=== PATIENT | male | born 1970 | race Caucasian/White ===

== ENCOUNTER 2017-02-22 22:07 | Observation (INO) | payer OTHER ==
[2017-02-22] MEDS ORDERED: Ondansetron 4 MG/2 ML SDV IVPUSH ONE (23:33)
[2017-02-22] MEDS ORDERED: HYDROmorphone 1 MG/ML Syringe IVPUSH ONE (23:33)
[2017-02-22] MEDS ORDERED: Sodium Chloride 0.9% 1,000 ML IV SCH (23:45)
[2017-02-23] MEDS ORDERED: Diatrizoate Meglumine/Diatrizoate Sodium 37% 120 ML Bottle PO ONE (01:01)
[2017-02-23] MEDS ORDERED: Sodium Chloride 0.9% 10 ML Syringe FLUSH PRN (01:01)
[2017-02-23] MEDS ORDERED: Iopamidol 755 Mg/ML 100 ML Bottle IVPUSH ONE (01:01)
[2017-02-23] MEDS ORDERED: Sodium Chloride 0.9% 100 ML IV SCH (01:15)
[2017-02-23] MEDS ORDERED: HYDROmorphone 1 MG/ML Syringe IVPUSH ONE (01:34)
--- NOTE | 2017-02-23 01:46 | EDM.PDOC ---
ED HPI GENERAL MEDICAL PROBLEM - General Chief Complaint: Abdominal Pain Stated Complaint: ABDOMINAL PAIN Time Seen by Provider: 02/22/17 23:22 Source of Information: Reports: Patient, RN Notes Reviewed History Limitations: Reports: No Limitations - History of Present Illness INITIAL COMMENTS - FREE TEXT/NARRATIVE: The patient states that he developed central abdominal pain around 11:00 this morning, but that the pain then radiated to his right lower quadrant. He states that it is a painful bloating sensation. The pain is made worse with walking. He is most comfortable in the position. He developed nonbloody diarrhea around noon, then nausea and vomiting around 18:00 tonight. No recent fever. He states that the sensation is similar to when he had diverticulitis in 2004, but he does not recall the location of the pain at that time. The patient has never had a colonoscopy. The patient's last oral solid food was around noon today, his last liquid oral intake was around 18:00 tonight, but he vomited it up. The patient's PCP is Dr. Asencio, from [place], [place]. The patient is in this area for work. Left Lower Abdomen Pain Score (Numeric/FACES): 8 - Related Data Allergies Allergy/AdvReac Type Severity Reaction Status Date / Time cephalexin [From Keflex] Allergy Vomiting Verified 02/22/17 22:33 Home Meds: Home Meds Omeprazole Magnesium [Prilosec Otc] 20 mg PO DAILY 02/22/17 [History] Past Medical History Cardiovascular History: Reports: High Cholesterol Gastrointestinal History: Reports: Diverticulosis, GERD Psychiatric History: Reports: PTSD - Past Surgical History HEENT Surgical History: Reports: BLADIMIRIK Social & Family History - Tobacco Use Smoking Status *Q: Never Smoker - Alcohol Use Alcohol Use History: No - Recreational Drug Use Recreational Drug Use: No - Living Situation & Occupation Living situation: Reports: , with Spouse, with Family (1 daughter) 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) ED ROS GENERAL - Review of Systems Review Of Systems: See Below Constitutional: Reports: No Symptoms HEENT: Reports: No Symptoms Respiratory: Reports: No Symptoms Cardiovascular: Reports: No Symptoms Endocrine: Reports: No Symptoms GI/Abdominal: Reports: No Symptoms : Reports: No Symptoms Musculoskeletal: Reports: No Symptoms Skin: Reports: No Symptoms Neurological: Reports: No Symptoms Psychiatric: Reports: No Symptoms Hematologic/Lymphatic: Reports: No Symptoms Immunologic: Reports: No Symptoms ED EXAM, GI/ABD - Physical Exam Exam: See Below Exam Limited By: No Limitations General Appearance: Alert, WD/WN, Mild Distress (Appears uncomfortable) Ears: Normal External Exam, Hearing Grossly Normal Nose: Normal Inspection, No Blood Throat/Mouth: Normal Inspection, Normal Lips, Normal Voice, No Airway Compromise Head: Atraumatic, Normocephalic Neck: Normal Inspection, Full Range of Motion Respiratory/Chest: No Respiratory Distress, Lungs Clear, Normal Breath Sounds, No Accessory Muscle Use Cardiovascular: Normal Peripheral Pulses, Regular Rate, Rhythm, No Gallop, No JVD, No Murmur, No Rub GI/Abdominal Exam: Normal Bowel Sounds, Soft, No Organomegaly, No Distention, No Abnormal Bruit, No Mass, Tender (To the right lower quadrant only. Nontender elsewhere.), Other (Rovsing sign present. Heel drop sign present. Obturator sign negative. Psoas sign negative.) (Male) Exam: Deferred Back Exam: Normal Inspection, Full Range of Motion. No: CVA Tenderness (L), CVA Tenderness (R) Extremities: Normal Inspection, Normal Range of Motion, No Pedal Edema, Normal Capillary Refill Neurological: Alert, Oriented, Normal Cognition, No Motor/Sensory Deficits Psychiatric: Normal Affect Skin Exam: Warm, Dry, Intact, Normal Color, No Rash Lymphatic: No Adenopathy Course - Vital Signs Last Recorded V/S: Last Vital Signs Temp 36.9 C 02/22/17 22:33 Pulse 56 L 02/22/17 22:33 Resp 18 02/22/17 22:33 BP 137/84 02/22/17 22:33 Pulse Ox 100 02/22/17 22:33 - Orders/Labs/Meds Orders: Active Orders 24 hr Category Date Time Status Abdomen Pelvis w Cont [CT] Stat Exams 02/22/17 23:32 Taken UA W/MICROSCOPIC [URIN] Stat Lab 02/22/17 22:49 Uncollected Sodium Chloride 0.9% [Normal Saline] 1,000 ml Med 02/22/17 23:45 Active IV ASDIRECTED Sodium Chloride 0.9% [Normal Saline] 100 ml Med 02/23/17 01:15 Active IV ASDIRECTED Sodium Chloride 0.9% [Saline Flush] Med 02/23/17 01:01 Active 10 ml FLUSH ONETIME PRN Medication Orders Sodium Chloride (Normal Saline) 1,000 mls @ 150 mls/hr IV ASDIRECTED VÍCTOR Last Admin: 02/22/17 23:43 Dose: 150 mls/hr Sodium Chloride (Normal Saline) 100 mls @ 65 mls/hr IV ASDIRECTED VÍCTOR Last Admin: 02/23/17 01:45 Dose: 65 mls/hr Sodium Chloride (Saline Flush) 10 ml FLUSH ONETIME PRN PRN Reason: IV FLUSH Last Admin: 02/23/17 01:45 Dose: 10 ml Labs: Laboratory Tests 02/22/17 02/22/17 Range/Units 22:58 22:58 WBC 13.20 H (4.23-9.07) K/mm3 RBC 5.00 (4.63-6.08) M/mm3 Hgb 14.9 (13.7-17.5) gm/L Hct 42.9 (40.1-51.0) % MCV 85.8 (79.0-92.2) fl MCH 29.8 (25.7-32.2) pg MCHC 34.7 (32.2-35.5) g/dl RDW Std Deviation 39.6 (35.1-43.9) fL Plt Count 279 (163-337) K/mm3 MPV 9.7 (9.4-12.3) fl Neutrophils % (Manual) 80 H (40-60) % Band Neutrophils % 1 (0-10) % Lymphocytes % (Manual) 9 L (20-40) % Atypical Lymphs % 0 % Monocytes % (Manual) 8 (2-10) % Eosinophils % (Manual) 0 L (0.8-7.0) % Basophils % (Manual) 2 H (0.2-1.2) Platelet Estimate Adequate Plt Morphology Comment Normal RBC Morph Comment Normal Sodium 142 (136-145) mEq/L Potassium 3.9 (3.5-5.1) mEq/L Chloride 106 (98-107) mEq/L Carbon Dioxide 29 (21-32) mEq/L Anion Gap 10.9 (5-15) BUN 20 H (7-18) mg/dL Creatinine 1.5 H (0.7-1.3) mg/dL Est Cr Clr Drug Dosing 66.24 mL/min Estimated GFR (MDRD) 51 (>60) mL/min BUN/Creatinine Ratio 13.3 L (14-18) Glucose 142 H (74-106) mg/dL Calcium 9.0 (8.5-10.1) mg/dL Total Bilirubin 0.9 (0.2-1.0) mg/dL AST 25 (15-37) U/L ALT 34 (16-63) U/L Alkaline Phosphatase 68 (46-116) U/L C-Reactive Protein < 0.2 (<1.0) mg/dL Total Protein 7.5 (6.4-8.2) g/dl Albumin 4.4 (3.4-5.0) g/dl Globulin 3.1 gm/dL Albumin/Globulin Ratio 1.4 (1-2) Lipase 335 (73-393) U/L Meds: Medications Generic Name Dose Route Start Last Admin Trade Name Freq PRN Reason Stop Dose Admin Sodium Chloride 1,000 mls @ 150 mls/hr 02/22/17 23:45 02/22/17 23:43 Normal Saline IV 150 mls/hr ASDIRECTED VÍCTOR Administration Sodium Chloride 100 mls @ 65 mls/hr 02/23/17 01:15 02/23/17 01:45 Normal Saline IV 65 mls/hr ASDIRECTED VÍCTOR Administration Sodium Chloride 10 ml 02/23/17 01:01 02/23/17 01:45 Saline Flush FLUSH 10 ml ONETIME PRN Administration IV FLUSH Discontinued Medications Generic Name Dose Route Start Last Admin Trade Name Maninder PRN Reason Stop Dose Admin Diatrizoate Meglum/Diatrizoate Sod 90 ml 02/23/17 01:01 02/23/17 01:47 Gastrografin 37% PO 02/23/17 01:02 90 ml ONETIME ONE Administration Hydromorphone HCl 1 mg 02/22/17 23:33 02/22/17 23:43 Dilaudid IVPUSH 02/22/17 23:34 1 mg ONETIME ONE Administration Hydromorphone HCl 1 mg 02/23/17 01:34 02/23/17 01:38 Dilaudid IVPUSH 02/23/17 01:35 1 mg ONETIME ONE Administration Iopamidol 100 ml 02/23/17 01:01 02/23/17 01:45 Isovue-370 (76%) IVPUSH 02/23/17 01:02 100 ml ONETIME ONE Administration Ondansetron HCl 4 mg 02/22/17 23:33 02/22/17 23:45 Zofran IVPUSH 02/22/17 23:34 4 mg ONETIME ONE Administration - Re-Assessments/Exams Free Text/Narrative Re-Assessment/Exam: 02/23/17 02:15 CT of the abdomen and pelvis with oral and IV contrast is read by virtual radiology as: Abnormally dilated appendix containing probable appendicoliths with evidence of minimal periappendiceal inflammatory change. Findings are consistent early on, acute appendicitis. Colonic diverticulosis without evidence of diverticulitis. 02/23/17 02:[address] Avalos at 02:15. He would like the patient to receive Mefoxin 2 g. He would like the patient to be admitted to him. I will write bridge orders. Departure - Departure Time of Disposition: 02:22 Disposition: Home, Self-Care 01 Condition: Fair Clinical Impression: Acute appendicitis - Discharge Information - My Orders Last 24 Hours: My Active Orders 02/22/17 22:49 UA W/MICROSCOPIC [URIN] Stat 02/22/17 23:32 Abdomen Pelvis w Cont [CT] Stat 02/22/17 23:45 Sodium Chloride 0.9% [Normal Saline] 1,000 ml IV ASDIRECTED 02/23/17 01:01 Sodium Chloride 0.9% [Saline Flush] 10 ml FLUSH ONETIME PRN 02/23/17 01:15 Sodium Chloride 0.9% [Normal Saline] 100 ml IV ASDIRECTED - Assessment/Plan Last 24 Hours: My Active Orders 02/22/17 22:49 UA W/MICROSCOPIC [URIN] Stat 02/22/17 23:32 Abdomen Pelvis w Cont [CT] Stat 02/22/17 23:45 Sodium Chloride 0.9% [Normal Saline] 1,000 ml IV ASDIRECTED 02/23/17 01:01 Sodium Chloride 0.9% [Saline Flush] 10 ml FLUSH ONETIME PRN 02/23/17 01:15 Sodium Chloride 0.9% [Normal Saline] 100 ml IV ASDIRECTED
[2017-02-23] MEDS ORDERED: cefOXitin 2 GM in Sodium Chloride 0.9% 100 ML IV ONE (02:19)
[2017-02-23] MEDS ORDERED: cefOXitin 2 GM in Premix Bag 1 BAG IV ONE (02:25)
[2017-02-23] MEDS ORDERED: Ondansetron 4 MG/2 ML SDV IVPUSH PRN ×2 (03:34→09:10)
[2017-02-23] MEDS ORDERED: HYDROmorphone 1 MG/ML Syringe IVPUSH PRN (03:34)
[2017-02-23] MEDS ORDERED: Lidocaine 1% with EPINEPHrine 1:100,000 20 ML MDV ONE ×2 (07:55→08:16)
[2017-02-23] MEDS ORDERED: Bupivacaine 0.5%/EPINEPHrine 1:200,000 50 ML MDV ONE ×2 (07:55→08:16)
[2017-02-23] MEDS ORDERED: Bupivacaine 0.5% 30 ML SDV ONE (07:58)
[2017-02-23] MEDS ORDERED: Lidocaine 1% 30 ML SDV ONE (07:58)
--- NOTE | 2017-02-23 08:03 | PCM.HP ---
H&P History of Present Illness - General Date of Service: 02/23/17 Admit Problem/Dx: Admission Diagnosis/Problem Admission Diagnosis/Problem Acute appendicitis Source of Information: Patient - History of Present Illness Initial Comments - Free Text/Narative: 47-year-old male was in his usual state of excellent health until yesterday when he complained of abdominal pain. His pain began in the epigastrium then became periumbilical and ultimately rested in his right lower quadrant. The pain has intensified since onset and because of this he presented to the emergency room. He had anorexia nausea and one loose stool without blood. His white blood cell count was elevated. A CT scan showed features consistent with early appendicitis. I was asked to evaluate him. Left Lower Abdomen Pain Score (Numeric/FACES): 0 - Related Data Allergies/Adverse Reactions: Allergies Allergy/AdvReac Type Severity Reaction Status Date / Time cephalexin [From Keflex] Allergy Vomiting Verified 02/22/17 22:33 Home Medications: Home Meds Omeprazole Magnesium [Prilosec Otc] 20 mg PO DAILY 02/22/17 [History] Past Medical History Cardiovascular History: Reports: High Cholesterol Gastrointestinal History: Reports: Diverticulosis, GERD Other Gastrointestinal History: diverticulitis Neurological History: Reports: Migraines Psychiatric History: Reports: PTSD - Past Surgical History HEENT Surgical History: Reports: KUMAR Cardiovascular Surgical History: Reports: None GI Surgical History: Reports: None Neurological Surgical History: Reports: None Dermatological Surgical History: Reports: None Social & Family History - Family History Cardiac: Reports: Heart Valve Replacement GI: Reports: GERD, Other (See Below) Other GI Family History: barretts esophagus Musculoskeletal: Reports: Back pain, Chronic Oncologic: Reports: Ovarian - Tobacco Use Smoking Status *Q: Never Smoker - Recreational Drug Use Recreational Drug Use: No - Living Situation & Occupation Living situation: Reports: , with Spouse, with Family (1 daughter) 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) H&P Review of Systems - Review of Systems: Review Of Systems: See Below Gastrointestinal: Reports: Abdominal Pain Exam - Exam Exam: See Below - Vital Signs Vital Signs: Last Vital Signs Temp 37.6 C 02/23/17 03:10 Pulse 69 02/23/17 03:10 Resp 16 02/23/17 03:10 BP 131/76 02/23/17 03:10 Pulse Ox 93 L 02/23/17 03:10 Weight: 86.727 kg - Exam General: Alert, Oriented, Cooperative HEENT: Conjunctiva Clear Neck: Supple, Trachea Midline Lungs: Clear to Auscultation, Normal Respiratory Effort Cardiovascular: Regular Rate, Regular Rhythm, Normal S1, Normal S2 GI/Abdominal Exam: Normal Bowel Sounds, Tender (McBurney's point) (Male) Exam: Deferred Rectal (Males) Exam: Deferred Back Exam: Full Range of Motion Skin: Warm, Dry, Intact Neuro Extensive - Mental Status: Alert, Oriented x3 Psychiatric: Alert, Normal Affect - Patient Data Lab Results Last 24 hrs: Laboratory Results - last 24 hr 02/23/17 Range/Units 02:40 Urine Color Yellow (Yellow) Urine Appearance Clear (Clear) Urine pH 6.0 (5.0-8.0) Ur Specific [place] 1.025 (1.005-1.030) Urine Protein Negative (Negative) Urine Glucose (UA) Negative (Negative) Urine Ketones Trace H (Negative) Urine Occult Blood Negative (Negative) Urine Nitrite Negative (Negative) Urine Bilirubin Negative (Negative) Urine Urobilinogen 0.2 (0.2-1.0) Ur Leukocyte Esterase Negative (Negative) Urine RBC 0-5 (0-5) /hpf Urine WBC 0-5 (0-5) /hpf Ur Epithelial Cells Not seen (0-5) /hpf Urine Bacteria Few (FEW) /hpf Urine Mucus Few (FEW) /hpf Result Diagrams: 02/22/17 22:58 02/22/17 22:58 *Q Meaningful Use (ADM) - VTE *Q VTE Criteria *Q: - Stroke *Q Stroke Criteria *Q: - AMI *Q AMI Criteria *Q: - Problem List (1) Acute appendicitis SNOMED Code(s): 76180977 ICD Code: K35.80 - UNSPECIFIED ACUTE APPENDICITIS Status: Acute Current Visit: Yes Problem List Initiated/Reviewed/Updated: Yes Orders Last 24hrs: Active Orders 24 hr Category Date Time Status Admission Status [Patient Status] [ADT] Routine ADT 02/23/17 02:48 Active NPO [Nothing Per Oral Diet] [DIET] Diet 02/23/17 Breakfast Active HYDROmorphone [Dilaudid] Med 02/23/17 03:34 Active 1 mg IVPUSH Q2H PRN Ondansetron [Zofran] Med 02/23/17 03:34 Active 4 mg IVPUSH Q6HR PRN Resuscitation Status Routine Resus Stat 02/23/17 03:32 Ordered Medication Orders Hydromorphone HCl (Dilaudid) 1 mg IVPUSH Q2H PRN PRN Reason: Pain (moderate 4-6) Sodium Chloride (Normal Saline) 1,000 mls @ 150 mls/hr IV ASDIRECTED [facility] Last Admin: 02/22/17 23:43 Dose: 150 mls/hr Ondansetron HCl (Zofran) 4 mg IVPUSH Q6HR PRN PRN Reason: Nausea/Vomiting Sodium Chloride (Saline Flush) 10 ml FLUSH ONETIME PRN PRN Reason: IV FLUSH Last Admin: 02/23/17 01:45 Dose: 10 ml Assessment/Plan Comment:: Imp: Acute appendicitis Plan: Laparoscopic possible open appendectomy. I discussed the benefits risks of the procedure as well as the alternatives. I made him aware of the possibility of bleeding infection and internal injury. He wanted to proceed.
--- NOTE | 2017-02-23 08:09 | PCM.PREANE ---
Preanesthetic Assessment - Anesthesia/Transfusion/Family Hx Anesthesia History: Prior Anesthesia Reaction Family History of Anesthesia Reaction: No Transfusion History: No Prior Transfusion(s) Intubation History: Unknown - Review of Systems General: Fever, Chills, Night Sweats Pulmonary: No Symptoms Cardiovascular: No Symptoms Gastrointestinal: Abdominal Pain, Nausea Neurological: No Symptoms Other: Reports: None - Physical Assessment NPO Status Date: 02/23/17 NPO Status Time: 03:00 Pulse: 69 O2 Sat by Pulse Oximetry: 93 Respiratory Rate: 16 Blood Pressure: 131/76 Temperature: 37.6 C Vital Signs: Last Vital Signs Temp 37.6 C 02/23/17 03:10 Pulse 69 02/23/17 03:10 Resp 16 02/23/17 03:10 BP 131/76 02/23/17 03:10 Pulse Ox 93 L 02/23/17 03:10 Height: 1.8 m Weight: 86.727 kg Mental Status: Alert & Oriented x3 Airway Class: Mallampati = 1 Dentition: Reports: Normal Dentition ((L) front tooth loose) Thyro-Mental Finger Breadths: 3 Mouth Opening Finger Breadths: 3 ROM/Head Extension: Full Lungs: Clear to Auscultation, Normal Respiratory Effort Cardiovascular: Regular Rate, Regular Rhythm - Lab Values: Laboratory Last Values WBC 13.20 K/mm3 (4.23-9.07) H 02/22/17 22:58 RBC 5.00 M/mm3 (4.63-6.08) 02/22/17 22:58 Hgb 14.9 gm/L (13.7-17.5) 02/22/17 22:58 Hct 42.9 % (40.1-51.0) 02/22/17 22:58 MCV 85.8 fl (79.0-92.2) 02/22/17 22:58 MCH 29.8 pg (25.7-32.2) 02/22/17 22:58 MCHC 34.7 g/dl (32.2-35.5) 02/22/17 22:58 RDW Std Deviation 39.6 fL (35.1-43.9) 02/22/17 22:58 Plt Count 279 K/mm3 (163-337) 02/22/17 22:58 MPV 9.7 fl (9.4-12.3) 02/22/17 22:58 Neutrophils % (Manual) 80 % (40-60) H 02/22/17 22:58 Band Neutrophils % 1 % (0-10) 02/22/17 22:58 Lymphocytes % (Manual) 9 % (20-40) L 02/22/17 22:58 Atypical Lymphs % 0 % 02/22/17 22:58 Monocytes % (Manual) 8 % (2-10) 02/22/17 22:58 Eosinophils % (Manual) 0 % (0.8-7.0) L 02/22/17 22:58 Basophils % (Manual) 2 (0.2-1.2) H 02/22/17 22:58 Platelet Estimate Adequate 02/22/17 22:58 Plt Morphology Comment Normal 02/22/17 22:58 RBC Morph Comment Normal 02/22/17 22:58 Sodium 142 mEq/L (136-145) 02/22/17 22:58 Potassium 3.9 mEq/L (3.5-5.1) 02/22/17 22:58 Chloride 106 mEq/L (98-107) 02/22/17 22:58 Carbon Dioxide 29 mEq/L (21-32) 02/22/17 22:58 Anion Gap 10.9 (5-15) 02/22/17 22:58 BUN 20 mg/dL (7-18) H 02/22/17 22:58 Creatinine 1.5 mg/dL (0.7-1.3) H 02/22/17 22:58 Est Cr Clr Drug Dosing 66.24 mL/min 02/22/17 22:58 Estimated GFR (MDRD) 51 mL/min (>60) 02/22/17 22:58 BUN/Creatinine Ratio 13.3 (14-18) L 02/22/17 22:58 Glucose 142 mg/dL (74-106) H 02/22/17 22:58 Calcium 9.0 mg/dL (8.5-10.1) 02/22/17 22:58 Total Bilirubin 0.9 mg/dL (0.2-1.0) 02/22/17 22:58 AST 25 U/L (15-37) 02/22/17 22:58 ALT 34 U/L (16-63) 02/22/17 22:58 Alkaline Phosphatase 68 U/L (46-116) 02/22/17 22:58 C-Reactive Protein < 0.2 mg/dL (<1.0) 02/22/17 22:58 Total Protein 7.5 g/dl (6.4-8.2) 02/22/17 22:58 Albumin 4.4 g/dl (3.4-5.0) 02/22/17 22:58 Globulin 3.1 gm/dL 02/22/17 22:58 Albumin/Globulin Ratio 1.4 (1-2) 02/22/17 22:58 Lipase 335 U/L (73-393) 02/22/17 22:58 Urine Color Yellow (Yellow) 02/23/17 02:40 Urine Appearance Clear (Clear) 02/23/17 02:40 Urine pH 6.0 (5.0-8.0) 02/23/17 02:40 Ur Specific [place] 1.025 (1.005-1.030) 02/23/17 02:40 Urine Protein Negative (Negative) 02/23/17 02:40 Urine Glucose (UA) Negative (Negative) 02/23/17 02:40 Urine Ketones Trace (Negative) H 02/23/17 02:40 Urine Occult Blood Negative (Negative) 02/23/17 02:40 Urine Nitrite Negative (Negative) 02/23/17 02:40 Urine Bilirubin Negative (Negative) 02/23/17 02:40 Urine Urobilinogen 0.2 (0.2-1.0) 02/23/17 02:40 Ur Leukocyte Esterase Negative (Negative) 02/23/17 02:40 Urine RBC 0-5 /hpf (0-5) 02/23/17 02:40 Urine WBC 0-5 /hpf (0-5) 02/23/17 02:40 Ur Epithelial Cells Not seen /hpf (0-5) 02/23/17 02:40 Urine Bacteria Few /hpf (FEW) 02/23/17 02:40 Urine Mucus Few /hpf (FEW) 02/23/17 02:40 - Allergies Allergies/Adverse Reactions: Allergies Allergy/AdvReac Type Severity Reaction Status Date / Time cephalexin [From Keflex] Allergy Vomiting Verified 02/22/17 22:33 - Acknowledgements Anesthesia Type Planned: General Anesthesia Pt an Appropriate Candidate for the Planned Anesthesia: Yes Alternatives and Risks of Anesthesia Discussed w Pt/Guardian: Yes Pt/Guardian Understands and Agrees with Anesthesia Plan: Yes PreAnesthesia Questionnaire HEENT History: Reports: None Cardiovascular History: Reports: High Cholesterol Respiratory History: Reports: None Gastrointestinal History: Reports: Diverticulosis, GERD (pt takes prilosec) Other Gastrointestinal History: diverticulitis Genitourinary History: Reports: None Musculoskeletal History: Reports: None Neurological History: Reports: Migraines (no headache today) Psychiatric History: Reports: PTSD Endocrine/Metabolic History: Reports: None Hematologic History: Reports: None - Past Surgical History Head Surgeries/Procedures: Reports: None HEENT Surgical History: Reports: LASIK Cardiovascular Surgical History: Reports: None Respiratory Surgical History: Reports: None GI Surgical History: Reports: None, EGD Female Surgical History: Reports: None Male Surgical History: Reports: None Endocrine Surgical History: Reports: None Neurological Surgical History: Reports: None Musculoskeletal Surgical History: Reports: None Oncologic Surgical History: Reports: None Dermatological Surgical History: Reports: None - SUBSTANCE USE Smoking Status *Q: Never Smoker Recreational Drug Use History: No - HOME MEDS Home Medications: Home Meds Omeprazole Magnesium [Prilosec Otc] 20 mg PO DAILY 02/22/17 [History] - CURRENT (IN HOUSE) MEDS Current Meds: Current Medications Hydromorphone HCl (Dilaudid) 1 mg IVPUSH Q2H PRN PRN Reason: Pain (moderate 4-6) Sodium Chloride (Normal Saline) 1,000 mls @ 150 mls/hr IV ASDIRECTED VÍCTOR Last Admin: 02/22/17 23:43 Dose: 150 mls/hr Ondansetron HCl (Zofran) 4 mg IVPUSH Q6HR PRN PRN Reason: Nausea/Vomiting Sodium Chloride (Saline Flush) 10 ml FLUSH ONETIME PRN PRN Reason: IV FLUSH Last Admin: 02/23/17 01:45 Dose: 10 ml Discontinued Medications Diatrizoate Meglum/Diatrizoate Sod (Gastrografin 37%) 90 ml PO ONETIME ONE Stop: 02/23/17 01:02 Last Admin: 02/23/17 01:47 Dose: 90 ml Hydromorphone HCl (Dilaudid) 1 mg IVPUSH ONETIME ONE Stop: 02/22/17 23:34 Last Admin: 02/22/17 23:43 Dose: 1 mg Hydromorphone HCl (Dilaudid) 1 mg IVPUSH ONETIME ONE Stop: 02/23/17 01:35 Last Admin: 02/23/17 01:38 Dose: 1 mg Sodium Chloride (Normal Saline) 100 mls @ 65 mls/hr IV ASDIRECTED VÍCTOR Last Admin: 02/23/17 01:45 Dose: 65 mls/hr Cefoxitin Sodium 2 gm/ Sodium (Chloride) 100 mls @ 200 mls/hr IV ONETIME ONE Stop: 02/23/17 02:48 Last Admin: 02/23/17 02:34 Dose: 200 mls/hr Cefoxitin Sodium 2 gm/ Premix 50 mls @ 100 mls/hr IV ONETIME ONE Stop: 02/23/17 02:54 Last Admin: 02/23/17 02:30 Dose: 100 mls/hr Iopamidol (Isovue-370 (76%)) 100 ml IVPUSH ONETIME ONE Stop: 02/23/17 01:02 Last Admin: 02/23/17 01:45 Dose: 100 ml Ondansetron HCl (Zofran) 4 mg IVPUSH ONETIME ONE Stop: 02/22/17 23:34 Last Admin: 02/22/17 23:45 Dose: 4 mg
--- NOTE | 2017-02-23 08:24 | PCM.PREANE ---
Preanesthetic Assessment - Anesthesia/Transfusion/Family Hx Anesthesia History: Prior Anesthesia Reaction Family History of Anesthesia Reaction: No Transfusion History: No Prior Transfusion(s) Intubation History: Unknown - Review of Systems Other: Reports: None - Physical Assessment NPO Status Date: 02/23/17 NPO Status Time: 03:00 Pulse: 69 O2 Sat by Pulse Oximetry: 93 Respiratory Rate: 16 Blood Pressure: 131/76 Temperature: 37.6 C Vital Signs: Last Vital Signs Temp 37.6 C 02/23/17 08:09 Pulse 69 02/23/17 08:09 Resp 16 02/23/17 08:09 BP 131/76 02/23/17 08:09 Pulse Ox 93 L 02/23/17 08:09 Height: 1.8 m Weight: 86.727 kg ASA Class: 2 Mental Status: Alert & Oriented x3 Airway Class: Mallampati = 1 - Lab Values: Laboratory Last Values WBC 13.20 K/mm3 (4.23-9.07) H 02/22/17 22:58 RBC 5.00 M/mm3 (4.63-6.08) 02/22/17 22:58 Hgb 14.9 gm/L (13.7-17.5) 02/22/17 22:58 Hct 42.9 % (40.1-51.0) 02/22/17 22:58 MCV 85.8 fl (79.0-92.2) 02/22/17 22:58 MCH 29.8 pg (25.7-32.2) 02/22/17 22:58 MCHC 34.7 g/dl (32.2-35.5) 02/22/17 22:58 RDW Std Deviation 39.6 fL (35.1-43.9) 02/22/17 22:58 Plt Count 279 K/mm3 (163-337) 02/22/17 22:58 MPV 9.7 fl (9.4-12.3) 02/22/17 22:58 Neutrophils % (Manual) 80 % (40-60) H 02/22/17 22:58 Band Neutrophils % 1 % (0-10) 02/22/17 22:58 Lymphocytes % (Manual) 9 % (20-40) L 02/22/17 22:58 Atypical Lymphs % 0 % 02/22/17 22:58 Monocytes % (Manual) 8 % (2-10) 02/22/17 22:58 Eosinophils % (Manual) 0 % (0.8-7.0) L 02/22/17 22:58 Basophils % (Manual) 2 (0.2-1.2) H 02/22/17 22:58 Platelet Estimate Adequate 02/22/17 22:58 Plt Morphology Comment Normal 02/22/17 22:58 RBC Morph Comment Normal 02/22/17 22:58 Sodium 142 mEq/L (136-145) 02/22/17 22:58 Potassium 3.9 mEq/L (3.5-5.1) 02/22/17 22:58 Chloride 106 mEq/L (98-107) 02/22/17 22:58 Carbon Dioxide 29 mEq/L (21-32) 02/22/17 22:58 Anion Gap 10.9 (5-15) 02/22/17 22:58 BUN 20 mg/dL (7-18) H 02/22/17 22:58 Creatinine 1.5 mg/dL (0.7-1.3) H 02/22/17 22:58 Est Cr Clr Drug Dosing 66.24 mL/min 02/22/17 22:58 Estimated GFR (MDRD) 51 mL/min (>60) 02/22/17 22:58 BUN/Creatinine Ratio 13.3 (14-18) L 02/22/17 22:58 Glucose 142 mg/dL (74-106) H 02/22/17 22:58 Calcium 9.0 mg/dL (8.5-10.1) 02/22/17 22:58 Total Bilirubin 0.9 mg/dL (0.2-1.0) 02/22/17 22:58 AST 25 U/L (15-37) 02/22/17 22:58 ALT 34 U/L (16-63) 02/22/17 22:58 Alkaline Phosphatase 68 U/L (46-116) 02/22/17 22:58 C-Reactive Protein < 0.2 mg/dL (<1.0) 02/22/17 22:58 Total Protein 7.5 g/dl (6.4-8.2) 02/22/17 22:58 Albumin 4.4 g/dl (3.4-5.0) 02/22/17 22:58 Globulin 3.1 gm/dL 02/22/17 22:58 Albumin/Globulin Ratio 1.4 (1-2) 02/22/17 22:58 Lipase 335 U/L (73-393) 02/22/17 22:58 Urine Color Yellow (Yellow) 02/23/17 02:40 Urine Appearance Clear (Clear) 02/23/17 02:40 Urine pH 6.0 (5.0-8.0) 02/23/17 02:40 Ur Specific [place] 1.025 (1.005-1.030) 02/23/17 02:40 Urine Protein Negative (Negative) 02/23/17 02:40 Urine Glucose (UA) Negative (Negative) 02/23/17 02:40 Urine Ketones Trace (Negative) H 02/23/17 02:40 Urine Occult Blood Negative (Negative) 02/23/17 02:40 Urine Nitrite Negative (Negative) 02/23/17 02:40 Urine Bilirubin Negative (Negative) 02/23/17 02:40 Urine Urobilinogen 0.2 (0.2-1.0) 02/23/17 02:40 Ur Leukocyte Esterase Negative (Negative) 02/23/17 02:40 Urine RBC 0-5 /hpf (0-5) 02/23/17 02:40 Urine WBC 0-5 /hpf (0-5) 02/23/17 02:40 Ur Epithelial Cells Not seen /hpf (0-5) 02/23/17 02:40 Urine Bacteria Few /hpf (FEW) 02/23/17 02:40 Urine Mucus Few /hpf (FEW) 02/23/17 02:40 - Allergies Allergies/Adverse Reactions: Allergies Allergy/AdvReac Type Severity Reaction Status Date / Time cephalexin [From Keflex] Allergy Vomiting Verified 02/22/17 22:33 PreAnesthesia Questionnaire HEENT History: Reports: None Cardiovascular History: Reports: High Cholesterol Respiratory History: Reports: None Gastrointestinal History: Reports: Diverticulosis, GERD (pt takes prilosec) Other Gastrointestinal History: diverticulitis Genitourinary History: Reports: None Musculoskeletal History: Reports: None Neurological History: Reports: Migraines (no headache today) Psychiatric History: Reports: PTSD Endocrine/Metabolic History: Reports: None Hematologic History: Reports: None - Past Surgical History Head Surgeries/Procedures: Reports: None HEENT Surgical History: Reports: KUMAR Cardiovascular Surgical History: Reports: None Respiratory Surgical History: Reports: None GI Surgical History: Reports: None, EGD Female Surgical History: Reports: None Male Surgical History: Reports: None Endocrine Surgical History: Reports: None Neurological Surgical History: Reports: None Musculoskeletal Surgical History: Reports: None Oncologic Surgical History: Reports: None Dermatological Surgical History: Reports: None - SUBSTANCE USE Smoking Status *Q: Never Smoker Recreational Drug Use History: No - HOME MEDS Home Medications: Home Meds Omeprazole Magnesium [Prilosec Otc] 20 mg PO DAILY 02/22/17 [History] - CURRENT (IN HOUSE) MEDS Current Meds: Current Medications Hydromorphone HCl (Dilaudid) 1 mg IVPUSH Q2H PRN PRN Reason: Pain (moderate 4-6) Sodium Chloride (Normal Saline) 1,000 mls @ 150 mls/hr IV ASDIRECTED VÍCTOR Last Admin: 02/22/17 23:43 Dose: 150 mls/hr Ondansetron HCl (Zofran) 4 mg IVPUSH Q6HR PRN PRN Reason: Nausea/Vomiting Sodium Chloride (Saline Flush) 10 ml FLUSH ONETIME PRN PRN Reason: IV FLUSH Last Admin: 02/23/17 01:45 Dose: 10 ml Discontinued Medications Bupivacaine HCl (Marcaine 0.5%) Confirm Administered Dose 30 ml .ROUTE .STK-MED ONE Stop: 02/23/17 07:59 Bupivacaine HCl/Epinephrine Bitart (Marcaine 0.5%/Epinephrine 1:200,000) Confirm Administered Dose 50 ml .ROUTE .STK-MED ONE Stop: 02/23/17 07:56 Bupivacaine HCl/Epinephrine Bitart ([place] 0.5%/Epinephrine 1:200,000) Confirm Administered Dose 50 ml .ROUTE .STK-MED ONE Stop: 02/23/17 08:17 Diatrizoate Meglum/Diatrizoate Sod (Gastrografin 37%) 90 ml PO ONETIME ONE Stop: 02/23/17 01:02 Last Admin: 02/23/17 01:47 Dose: 90 ml Fentanyl (Sublimaze) Confirm Administered Dose 250 mcg .ROUTE .STK-MED ONE Stop: 02/23/17 08:26 Hydromorphone HCl (Dilaudid) 1 mg IVPUSH ONETIME ONE Stop: 02/22/17 23:34 Last Admin: 02/22/17 23:43 Dose: 1 mg Hydromorphone HCl (Dilaudid) 1 mg IVPUSH ONETIME ONE Stop: 02/23/17 01:35 Last Admin: 02/23/17 01:38 Dose: 1 mg Sodium Chloride (Normal Saline) 100 mls @ 65 mls/hr IV ASDIRECTED VÍCTOR Last Admin: 02/23/17 01:45 Dose: 65 mls/hr Cefoxitin Sodium 2 gm/ Sodium (Chloride) 100 mls @ 200 mls/hr IV ONETIME ONE Stop: 02/23/17 02:48 Last Admin: 02/23/17 02:34 Dose: 200 mls/hr Cefoxitin Sodium 2 gm/ Premix 50 mls @ 100 mls/hr IV ONETIME ONE Stop: 02/23/17 02:54 Last Admin: 02/23/17 02:30 Dose: 100 mls/hr Iopamidol (Isovue-370 (76%)) 100 ml IVPUSH ONETIME ONE Stop: 02/23/17 01:02 Last Admin: 02/23/17 01:45 Dose: 100 ml Lidocaine HCl (Xylocaine-Mpf 1%) Confirm Administered Dose 30 ml .ROUTE .STK- MED ONE Stop: 02/23/17 07:59 Lidocaine/Epinephrine (Xylocaine 1% With Epinephrine 1:100,000) Confirm Administered Dose 20 ml .ROUTE .STK-MED ONE Stop: 02/23/17 07:56 Lidocaine/Epinephrine (Xylocaine 1% With Epinephrine 1:100,000) Confirm Administered Dose 20 ml .ROUTE .STK-MED ONE Stop: 02/23/17 08:17 Ondansetron HCl (Zofran) 4 mg IVPUSH ONETIME ONE Stop: 02/22/17 23:34 Last Admin: 02/22/17 23:45 Dose: 4 mg Propofol (Diprivan 20 Ml) Confirm Administered Dose 200 mg .ROUTE .STK-MED ONE Stop: 02/23/17 08:26
[2017-02-23] MEDS ORDERED: Propofol 200 MG/20 ML SDV ONE (08:25)
[2017-02-23] MEDS ORDERED: fentaNYL 250 MCG/5 ML SDV ONE (08:25)
--- NOTE | 2017-02-23 08:31 | CT ---
CT abdomen and pelvis Technique: Multiple axial sections were obtained from above the dome of the diaphragm inferiorly to the pubic symphysis. Intravenous and oral contrast was utilized. Delayed images also were obtained through the bladder. Findings: Dilated appendix is seen. Inflammatory change seen around the appendix. Small amount of high density material seen within the lumen of the appendix possibly due to minimal appendicoliths. Findings are compatible with appendicitis. Minimal atelectasis noted posteriorly within both lung bases. Liver shows a small low-density lesion within the right lobe most likely due to small cyst measuring 8 mm. Very minimal lesion measuring 1-2 mm seen within the left lobe likely of similar etiology. Spleen appears within normal limits. Small hiatal hernia is seen with gastroesophageal reflux contrast. No calcified gallstones are seen. Adrenal glands show no nodule. Pancreas is within normal limits. Aorta shows no aneurysmal dilatation. No retroperitoneal adenopathy or mesenteric abnormalities are seen. No pelvic mass or adenopathy is seen. Scattered diverticuli are seen within the colon. Delayed images show contrast within the distal ureters and bladder. Bone window settings were reviewed which appear within normal limits for the patient's age. Impression: 1. Findings compatible with appendicitis as described above. 2. Other incidental findings as noted above. Diagnostic code #5 Agree with preliminary report issued by [facility] ([facility] preliminary report dictated on 02/23/17, 3:10 AM Central Time)
[2017-02-23] MEDS ORDERED: Meperidine PF 50 MG/ML Syringe IVPUSH PRN (09:10)
[2017-02-23] MEDS ORDERED: fentaNYL 100 MCG/2 ML SDV IVPUSH PRN (09:10)
[2017-02-23] MEDS ORDERED: HYDROmorphone 0.5 MG/0.5 ML Syringe IVPUSH PRN (09:10)
[2017-02-23] MEDS ORDERED: HYDROmorphone 1 MG/ML Syringe ONE (09:11)
--- NOTE | 2017-02-23 09:38 | PCM.OPNOTE ---
- General Post-Op/Procedure Note Date of Surgery/Procedure: 02/23/17 Operative Procedure(s): Laparoscopic appendectomy Findings: Acute suppurative appendicitis Pre Op Diagnosis: Acute appendicitis Post-Op Diagnosis: Same Anesthesia Technique: General ET Tube, Local Primary Surgeon: Maxx Avalos Pathology: Appendix EBL in mLs: 1 Complications: None Condition: Good Free Text/Narrative:: After adequate general endotracheal tube anesthesia the patient's abdomen was prepped and draped sterilely for a laparoscopic appendectomy. After local analgesia was given a 15 blade was used to make incision above the umbilicus. The abdomen was cannulated with a 12 mm cannula. CO2 pneumoperitoneum was obtained. 2-5 mm working ports were placedin the abdomen one in the suprapubic region and one in the left lower quadrant. Exploration revealed a slightly indurated and inflamed appendix. I grasped the tip of the appendix and made a opening in the meso appendix. 3 staple loads were used to fire across the base first and in the appendiceal mesentery. The specimen was placed in a specimen bag and removed through the umbilicus. There was no significant bleeding at all. There was no obvious bowel injury. The abdomen was decannulated under direct vision. Photographs are taken for the patient and for the record. The supra umbilical site was closed with [id number] 0 Vicryl. The skin was closed with Vicryl as well. Steri-Strips and gauze were used for the dressing.
--- NOTE | 2017-02-23 09:44 | PCM.POSTAN ---
POST ANESTHESIA ASSESSMENT - MENTAL STATUS Mental Status: Alert, Oriented - VITAL SIGNS Pulse Rate: 96 SaO2: 96 Resp Rate: 15 Blood Pressure: 132/82 Temperature: 97.8 C - RESPIRATORY Respiratory Status: respiratory rate WNL, Airway Patent, O2 Saturation Stable - CARDIOVASCULAR CV Status: Pulse Rate WNL, Blood Pressure Stable - GASTROINTESTINAL GI Status: No Symptoms - PAIN Pain Score: 0 - POST OP HYDRATION Hydration Status: Adequate & Stable
--- NOTE | 2017-02-23 10:36 | PCM48HPAN ---
Post Anesthesia Note - EVALUATION WITHIN 48HRS OF ANESTHETIC Vital Signs in Normal Range: Yes Patient Participated in Evaluation: Yes Respiratory Function Stable: Yes Airway Patent: Yes Cardiovascular Function Stable: Yes Hydration Status Stable: Yes Pain Control Satisfactory: Yes Nausea and Vomiting Control Satisfactory: Yes Mental Status Recovered: Yes
[2017-02-23] MEDS ORDERED: diphenhydrAMINE 25 MG Cap PO ONE (11:24)
[2017-02-23 12:02] VITALS: BP 97/58
--- NOTE | 2017-02-25 11:17 | PCM.DCSUM1 ---
Discharge Summary - Hospital Course Free Text/Narrative:: Uncomplicated perioperative course. - Discharge Data Discharge Date: 02/23/17 Discharge Disposition: Home, Self-Care 01 Condition: Good - Discharge Diagnosis/Problem(s) (1) Acute appendicitis SNOMED Code(s): 53232638 ICD Code: K35.80 - UNSPECIFIED ACUTE APPENDICITIS Status: Resolved Onset Date: ~02/22/17 Qualifiers: Acute appendicitis type: unspecified acute appendicitis type Qualified Code (s): K35.80 - Unspecified acute appendicitis - Patient Summary/Data Operative Procedure(s) Performed: Laparoscopic appendectomy Hospital Course: Uncomplicated. - Patient Instructions Diet: Usual Diet as Tolerated Activity: As Tolerated, Rest and Relax Today Driving: Do Not Drive (24 hours) Showering/Bathing: May Shower in 3 Days (Remove outer gauze dressing before shower. Leave the Steri-Strips in place. They can get wet in the shower.) Notify Provider of: Fever, Increased Pain - Discharge Plan Prescriptions/Med Rec: Acetaminophen with Codeine [Tylenol with Codeine #3 Tablet] 1 - 2 tab PO Q6H PRN #24 tablet PRN Reason: Pain Home Medications: Home Meds Omeprazole Magnesium [Prilosec Otc] 20 mg PO DAILY 02/22/17 [History] Acetaminophen with Codeine [Tylenol with Codeine #3 Tablet] 1 - 2 tab PO Q6H PRN #24 tablet 02/23/17 [Rx] Patient Handouts: Laparoscopic Appendectomy, Adult, Care After, [id number], Appendicitis, [id number] Referrals: PCP,Not In Area [Primary Care Provider] - Maxx Avalos MD [Physician] - 03/03/17 9:30 am (Routine postop check) - Discharge Summary/Plan Comment DC Time >30 min.: No Discharge Summary/Plan Comment: Discharged from PACU. - Patient Data Vitals - Most Recent: Last Vital Signs Temp 36.2 C 02/23/17 11:53 Pulse 85 02/23/17 11:53 Resp 14 02/23/17 11:53 BP 97/58 L 02/23/17 11:53 Pulse Ox 90 L 02/23/17 11:53 Weight - Most Recent: 86.727 kg Med Orders - Current: Current Medications Discontinued Medications Bupivacaine HCl (Marcaine 0.5%) Confirm Administered Dose 30 ml .ROUTE .STK-MED ONE Stop: 02/23/17 07:59 Bupivacaine HCl/Epinephrine Bitart (Marcaine 0.5%/Epinephrine 1:200,000) Confirm Administered Dose 50 ml .ROUTE .STK-MED ONE Stop: 02/23/17 07:56 Last Admin: 02/23/17 09:17 Dose: 10 ml Bupivacaine HCl/Epinephrine Bitart (Marcaine 0.5%/Epinephrine 1:200,000) Confirm Administered Dose 50 ml .ROUTE .STK-MED ONE Stop: 02/23/17 08:17 Diatrizoate Meglum/Diatrizoate Sod (Gastrografin 37%) 90 ml PO ONETIME ONE Stop: 02/23/17 01:02 Last Admin: 02/23/17 01:47 Dose: 90 ml Diphenhydramine HCl (Benadryl) 25 mg PO ONETIME ONE Stop: 02/23/17 11:25 Last Admin: 02/23/17 11:53 Dose: 25 mg Fentanyl (Sublimaze) Confirm Administered Dose 250 mcg .ROUTE .STK-MED ONE Stop: 02/23/17 08:26 Fentanyl (Sublimaze) 50 mcg IVPUSH Q5M PRN PRN Reason: Pain Stop: 02/23/17 09:26 Hydromorphone HCl (Dilaudid) 1 mg IVPUSH ONETIME ONE Stop: 02/22/17 23:34 Last Admin: 02/22/17 23:43 Dose: 1 mg Hydromorphone HCl (Dilaudid) 1 mg IVPUSH ONETIME ONE Stop: 02/23/17 01:35 Last Admin: 02/23/17 01:38 Dose: 1 mg Hydromorphone HCl (Dilaudid) 1 mg IVPUSH Q2H PRN PRN Reason: Pain (moderate 4-6) Hydromorphone HCl (Dilaudid) Confirm Administered Dose 1 mg .ROUTE .STK-MED ONE Stop: 02/23/17 09:12 Hydromorphone HCl (Dilaudid) 0.5 mg IVPUSH Q15M PRN PRN Reason: severe pain Stop: 02/23/17 09:26 Sodium Chloride (Normal Saline) 1,000 mls @ 150 mls/hr IV ASDIRECTED VÍCTOR Last Admin: 02/22/17 23:43 Dose: 150 mls/hr Sodium Chloride (Normal Saline) 100 mls @ 65 mls/hr IV ASDIRECTED [facility] Last Admin: 02/23/17 01:45 Dose: 65 mls/hr Cefoxitin Sodium 2 gm/ Sodium (Chloride) 100 mls @ 200 mls/hr IV ONETIME ONE Stop: 02/23/17 02:48 Last Admin: 02/23/17 02:34 Dose: 200 mls/hr Cefoxitin Sodium 2 gm/ Premix 50 mls @ 100 mls/hr IV ONETIME ONE Stop: 02/23/17 02:54 Last Admin: 02/23/17 02:30 Dose: 100 mls/hr Iopamidol (Isovue-370 (76%)) 100 ml IVPUSH ONETIME ONE Stop: 02/23/17 01:02 Last Admin: 02/23/17 01:45 Dose: 100 ml Lidocaine HCl (Xylocaine-Mpf 1%) Confirm Administered Dose 30 ml .ROUTE .STK- MED ONE Stop: 02/23/17 07:59 Lidocaine/Epinephrine (Xylocaine 1% With Epinephrine 1:100,000) Confirm Administered Dose 20 ml .ROUTE .STK-MED ONE Stop: 02/23/17 07:56 Last Admin: 02/23/17 09:17 Dose: 10 ml Lidocaine/Epinephrine (Xylocaine 1% With Epinephrine 1:100,000) Confirm Administered Dose 20 ml .ROUTE .STK-MED ONE Stop: 02/23/17 08:17 Meperidine HCl (Demerol) 12.5 mg IVPUSH ASDIRECTED PRN PRN Reason: Shivering Stop: 02/24/17 09:11 Last Admin: 02/23/17 09:46 Dose: 12.5 mg Ondansetron HCl (Zofran) 4 mg IVPUSH ONETIME ONE Stop: 02/22/17 23:34 Last Admin: 02/22/17 23:45 Dose: 4 mg Ondansetron HCl (Zofran) 4 mg IVPUSH Q6HR PRN PRN Reason: Nausea/Vomiting Ondansetron HCl (Zofran) 4 mg IVPUSH ONETIME PRN PRN Reason: Nausea/Vomiting Stop: 02/23/17 16:00 Propofol (Diprivan 20 Ml) Confirm Administered Dose 200 mg .ROUTE .STK-MED ONE Stop: 02/23/17 08:26 Sodium Chloride (Saline Flush) 10 ml FLUSH ONETIME PRN PRN Reason: IV FLUSH Last Admin: 02/23/17 01:45 Dose: 10 ml *Q Meaningful Use (DIS) - VTE *Q VTE Criteria *Q: - Stroke *Q Stroke Criteria *Q: - AMI *Q AMI Criteria *Q:
== END 2017-02-23 14:28 | disposition home or self-care (01) ==
LOC: JD.ED 22:07 → JD.MS 02-23 02:35
PROVIDERS: ADMIT Surgery; ATTEND Surgery
PROC: 0DTJ4ZZ Resection of Appendix, Percutaneous Endoscopic Approach (ICD-10-PCS; principal; 2017-02-23)
DX: K35.80 Unspecified acute appendicitis (principal); E78.00 Pure hypercholesterolemia, unspecified; K21.9 Gastro-esophageal reflux disease without esophagitis; F43.12 Post-traumatic stress disorder, chronic; G43.909 Migraine, unspecified, not intractable, without status migrainosus; K57.30 Diverticulosis of large intestine without perforation or abscess without bleeding
CPT/HCPCS: 36415; 44970; 74177; 80053; 81001; 83690; 85025; 86140; 88304; 96361; 96365; 96375; 96376; 99285; A9270; G0378; J0694; J1170; J2175; J2405; J3010; J7030; J7040; J7050; Q9963; Q9967; 00840; J2704

== ENCOUNTER 2019-04-11 15:16 | Emergency (ER) | payer BC, OTHER ==
[2019-04-11] MEDS: Ondansetron 4 MG Tab.DIS PO ONE (16:07)
--- NOTE | 2019-04-11 17:32 | EDM.PDOC ---
ED HPI GENERAL MEDICAL PROBLEM - General Chief Complaint: Gastrointestinal Problem Stated Complaint: VOMITTING Time Seen by Provider: 04/11/19 15:29 Source of Information: Reports: Patient History Limitations: Reports: No Limitations - History of Present Illness INITIAL COMMENTS - FREE TEXT/NARRATIVE: The patient presents with nausea and vomiting. He said he was feeling fine and about 3pm he got nauseated and vomited. Now he has generalized weakness. He has no fever, chills, cough, chest pain, or abdominal pain. He did not eat any bad food and he has not been around anyone who is sick. He still has his gallbladder and appendix. Onset: Sudden Duration: Hour(s): Severity: Mild Improves with: Reports: None Worsens with: Reports: None Associated Symptoms: Reports: Nausea/Vomiting. Denies: Chest Pain, Cough, Fever /Chills, Headaches, Shortness of Breath - Related Data Allergies Allergy/AdvReac Type Severity Reaction Status Date / Time cephalexin [From Keflex] AdvReac Vomiting Verified 04/11/19 15:30 Home Meds: Home Meds Omeprazole Magnesium [Prilosec Otc] 20 mg PO DAILY 02/22/17 [History] Acyclovir 400 mg PO DAILY 04/11/19 [History] Ondansetron [Zofran ODT] 4 mg PO Q6H PRN #20 tab.dis 04/11/19 [Rx] Pitavastatin [Livalo] 2 mg PO DAILY 04/11/19 [History] Past Medical History HEENT History: Reports: None Cardiovascular History: Reports: High Cholesterol Respiratory History: Reports: None Gastrointestinal History: Reports: Diverticulosis, GERD Other Gastrointestinal History: diverticulitis Genitourinary History: Reports: None Musculoskeletal History: Reports: None Neurological History: Reports: Migraines Psychiatric History: Reports: PTSD Endocrine/Metabolic History: Reports: None Hematologic History: Reports: None Immunologic History: Reports: None Oncologic (Cancer) History: Reports: None Dermatologic History: Reports: None - Infectious Disease History Infectious Disease History: Reports: None - Past Surgical History Head Surgeries/Procedures: Reports: None HEENT Surgical History: Reports: BLADIMIRIK Cardiovascular Surgical History: Reports: None Respiratory Surgical History: Reports: None GI Surgical History: Reports: Appendectomy, EGD Male Surgical History: Reports: None Endocrine Surgical History: Reports: None Neurological Surgical History: Reports: None Musculoskeletal Surgical History: Reports: None Oncologic Surgical History: Reports: None Social & Family History - Family History Cardiac: Reports: Heart Valve Replacement GI: Reports: GERD, Other (See Below) Other GI Family History: barretts esophagus Musculoskeletal: Reports: Back pain, Chronic Oncologic: Reports: Ovarian - Tobacco Use Smoking Status *Q: Never Smoker - Caffeine Use Caffeine Use: Reports: Coffee - Recreational Drug Use Recreational Drug Use: No - Living Situation & Occupation Living situation: Reports: , with Spouse, with Family (1 daughter) 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 Denies: Abdominal Pain, Diarrhea : Reports: No Symptoms Musculoskeletal: Reports: No Symptoms Skin: Reports: No Symptoms ED EXAM, GI/ABD - Physical Exam Exam: See Below Exam Limited By: No Limitations General Appearance: Alert, No Apparent Distress Ears: Normal External Exam Nose: Normal Inspection Throat/Mouth: Normal Inspection Head: Atraumatic, Normocephalic Neck: Normal Inspection Respiratory/Chest: No Respiratory Distress, Lungs Clear, Normal Breath Sounds Cardiovascular: Regular Rate, Rhythm, No Edema, No Murmur GI/Abdominal Exam: Soft, Non-Tender, No Organomegaly, No Mass Back Exam: Normal Inspection Extremities: Normal Inspection Neurological: Alert, Oriented, No Motor/Sensory Deficits Course - Vital Signs Last Recorded V/S: Last Vital Signs Temp 97.2 F 04/11/19 15:28 Pulse 80 04/11/19 15:28 Resp 16 04/11/19 15:28 BP 162/98 H 04/11/19 15:28 Pulse Ox 96 04/11/19 15:28 - Orders/Labs/Meds Orders: Active Orders 24 hr Category Date Time Status ED Antiemetic Medication Reflex [OM.PC] Stat Oth 04/11/19 15:52 Ordered Labs: Laboratory Tests 04/11/19 04/11/19 04/11/19 Range/Units 16:07 16:07 17:00 WBC 8.14 (4.23-9.07) K/mm3 RBC 5.22 (4.63-6.08) M/mm3 Hgb 15.6 (13.7-17.5) gm/L Hct 45.8 (40.1-51.0) % MCV 87.7 (79.0-92.2) fl MCH 29.9 (25.7-32.2) pg MCHC 34.1 (32.2-35.5) g/dl RDW Std Deviation 42.2 (35.1-43.9) fL Plt Count 379 H D (163-337) K/mm3 MPV 8.4 L (9.4-12.3) fl Neut % (Auto) 84.3 H (34.0-67.9) % Lymph % (Auto) 8.7 L (21.8-53.1) % [place] % (Auto) 6.5 (5.3-12.2) % Eos % (Auto) 0 L (0.8-7.0) Baso % (Auto) 0.4 (0.1-1.2) % Neut # (Auto) 6.86 H (1.78-5.38) K/mm3 Lymph # (Auto) 0.71 L (1.32-3.57) K/mm3 [place] # (Auto) 0.53 (0.30-0.82) K/mm3 Eos # (Auto) 0.00 L (0.04-0.54) K/mm3 Baso # (Auto) 0.03 (0.01-0.08) K/mm3 Manual Slide Review Abnormal smear Sodium 141 (136-145) mEq/L Potassium 4.2 (3.5-5.1) mEq/L Chloride 102 (98-107) mEq/L Carbon Dioxide 28 (21-32) mEq/L Anion Gap 15.2 H (5-15) BUN 12 (7-18) mg/dL Creatinine 1.1 (0.7-1.3) mg/dL Est Cr Clr Drug Dosing 88.42 mL/min Estimated GFR (MDRD) > 60 (>60) mL/min BUN/Creatinine Ratio 10.9 L (14-18) Glucose 100 (74-106) mg/dL Calcium 9.6 (8.5-10.1) mg/dL Total Bilirubin 1.1 H (0.2-1.0) mg/dL AST 32 (15-37) U/L ALT 37 (16-63) U/L Alkaline Phosphatase 63 (46-116) U/L Total Protein 8.0 (6.4-8.2) g/dl Albumin 4.5 (3.4-5.0) g/dl Globulin 3.5 gm/dL Albumin/Globulin Ratio 1.3 (1-2) Lipase 329 (73-393) U/L Urine Color Yellow (Yellow) Urine Appearance Clear (Clear) Urine pH 7.5 (5.0-8.0) Ur Specific [place] 1.020 (1.005-1.030) Urine Protein 1+ H (Negative) Urine Glucose (UA) Negative (Negative) Urine Ketones 2+ H (Negative) Urine Occult Blood Trace-lysed H (Negative) Urine Nitrite Negative (Negative) Urine Bilirubin Negative (Negative) Urine Urobilinogen 0.2 (0.2-1.0) Ur Leukocyte Esterase Negative (Negative) Urine RBC Not seen (0-5) /hpf Urine WBC Not seen (0-5) /hpf Ur Squamous Epith Cells Not seen (0-5) /hpf Urine Bacteria Not seen (FEW) /hpf Urine Mucus Not seen (FEW) /hpf Meds: Medications Discontinued Medications Generic Name Dose Route Start Last Admin Trade Name Freq PRN Reason Stop Dose Admin Ondansetron HCl 4 mg 04/11/19 15:51 04/11/19 16:07 Zofran Odt PO 04/11/19 15:52 4 mg ONETIME ONE Administration - Re-Assessments/Exams Free Text/Narrative Re-Assessment/Exam: 04/11/19 17:30 I ordered zofran, labs and a UA. His CBC and CMP look good. His lipase is normal. His UA shows no UTI. Departure - Departure Time of Disposition: 17:35 Disposition: Home, Self-Care 01 Condition: Good Clinical Impression: Gastroenteritis - Discharge Information *PRESCRIPTION DRUG MONITORING PROGRAM REVIEWED*: No *COPY OF PRESCRIPTION DRUG MONITORING REPORT IN PATIENT REHAN: No Prescriptions: Ondansetron [Zofran ODT] 4 mg PO Q6H PRN #20 tab.dis PRN Reason: Nausea\vomiting Referrals: PCP,Not In Area [Primary Care Provider] - Bashir Pérez PA-C [Physician Secretary] - 1 Week Additional Instructions: Drink plenty of fluids. Take the zofran every 6 hours as needed for nausea and vomiting. Please return if you are worse. - My Orders Last 24 Hours: My Active Orders 04/11/19 15:52 ED Antiemetic Medication Reflex [OM.PC] Stat - Assessment/Plan Last 24 Hours: My Active Orders 04/11/19 15:52 ED Antiemetic Medication Reflex [OM.PC] Stat
[2019-04-11 18:00] VITALS: BP 140/82; PULSE 87
== END 2019-04-11 17:55 | disposition home or self-care (01) ==
LOC: JD.ED 15:16
DX: K52.9 Noninfective gastroenteritis and colitis, unspecified (principal); K21.9 Gastro-esophageal reflux disease without esophagitis; Z90.49 Acquired absence of other specified parts of digestive tract; Z88.1 Allergy status to other antibiotic agents; Z79.899 Other long term (current) drug therapy
CPT/HCPCS: 36415; 80053; 81001; 82962; 83690; 85025; 99284; A9270-GY